=== PATIENT | female | born 1960 | race Caucasian/White ===

== ENCOUNTER 2017-06-23 18:20 | Emergency (ER) | payer OTHER | END 2017-06-23 20:20 | disposition home or self-care (01) | LOC: ER 18:20 | DX: S02.2XXA Fracture of nasal bones, initial encounter for closed fracture (principal); S00.83XA Contusion of other part of head, initial encounter; S80.01XA Contusion of right knee, initial encounter; I10 Essential (primary) hypertension; G43.909 Migraine, unspecified, not intractable, without status migrainosus; Z90.710 Acquired absence of both cervix and uterus; G30.9 Alzheimer's disease, unspecified; F02.80 Dementia in other diseases classified elsewhere, unspecified severity, without behavioral disturbance, psychotic disturbance, mood disturbance, and anxiety; W00.0XXA Fall on same level due to ice and snow, initial encounter; Y93.89 Activity, other specified; Y99.8 Other external cause status; Y92.89 Other specified places as the place of occurrence of the external cause | CPT/HCPCS: 70450; 70486; 99284-25 ==

== ENCOUNTER 2018-02-03 14:11 | Inpatient (IN) | payer OTHER ==
[~2018-02-03] VITALS: Ht 157.5 cm; Wt 93.1 kg
[~2018-02-03 14:11] MED LIST: HYDR-971 PO; fioricet; tramadol
[2018-02-03] MEDS ORDERED: IV NORMAL SALINE 1000ML BAG 1,000 ML IV ONE ×2 (15:00→16:30)
[2018-02-03 15:03] LABS: BASO % 0 % (0-3); EOS # 0.1 x10^3/uL (0.0-0.7); EOS % 1 % (0-3); HEMATOCRIT 41.6 % (36.0-47.0); HEMOGLOBIN 14.2 g/dL (12.0-15.5); LYMPH # 1.5 x10^3/uL (1.0-4.8); LYMPH % 13 % (24-48); MEAN CORPUSCULAR HEMOGLOBIN 31 pg (25-35); MEAN CORPUSCULAR HGB CONC 34 g/dL (31-37); MEAN CORPUSCULAR VOLUME 90 fL (79-100); MONO # 0.8 x10^3/uL (0.0-1.1); MONO % 7 % (0-9); NEUT # 8.8 x10^3uL (1.8-7.7); NEUT % 79 % (31-73); PLATELET COUNT 261 x10^3/uL (140-400); RED BLOOD COUNT 4.61 x10^6/uL (3.50-5.40); RED CELL DISTRIBUTION WIDTH 13.9 % (11.5-14.5); WHITE BLOOD COUNT 11.1 x10^3/uL (4.0-11.0)
--- NOTE | 2018-02-03 15:05 | PHYS DOC ---
Past Medical History Past Medical History: Dementia, Hypertension, Migraines, Other Additional Past Medical Histor: KNEE PROBLEMS,ALZHEIMER'S Past Surgical History: Hysterectomy, Other Additional Past Surgical Histo: BILAT cataract removed 11/17, Rt arm Alcohol Use: Occasionally Drug Use: None Adult General Chief Complaint Chief Complaint: DIZZY/LIGHT HEADED HPI HPI Patient is a 57 year old female with a history of Alzheimer's, hypertension, migraine headaches, who presents today complaining of dizziness worse on ambulation that begun today. She states she feels off-balance during the dizzy episodes. Patient is also complaining of nausea. Denies any vomiting. Denies any headache, denies any chest pain shortness of breath. Denies any cough, or congestion, Review of Systems Review of Systems Constitutional: Denies fever or chills [] Eyes: Denies change in visual acuity, redness, or eye pain [] HENT: Denies nasal congestion or sore throat [] Respiratory: Denies cough or shortness of breath [] Cardiovascular: No additional information not addressed in HPI [] GI: Denies abdominal pain, nausea, vomiting, bloody stools or diarrhea [] : Denies dysuria or hematuria [] Musculoskeletal: Denies back pain or joint pain [] Integument: Denies rash or skin lesions [] Neurologic: Reports dizziness. Denies headache, focal weakness or sensory changes [] All other systems were reviewed and found to be within normal limits, except as documented in this note. Current Medications Current Medications Current Medications Medications (Trade) Dose Ordered Sig/[facility] Start Time Stop Time Status Last Admin Dose Admin Acetaminophen (Tylenol) 650 mg PRN Q4HRS PRN 02/03/18 16:30 02/04/18 16:29 Meclizine HCl (Antivert) 25 mg PRN BID PRN 02/03/18 16:30 Ondansetron HCl (Zofran) 4 mg PRN Q8HRS PRN 02/03/18 16:30 02/04/18 16:29 Sodium Chloride 1,000 ml @ 125 mls/hr 1X ONCE 02/03/18 16:30 02/04/18 00:29 Allergies Allergies Allergies Coded Allergies Type Severity Reaction Last Updated Verified No Known Drug Allergies 11/20/14 No Physical Exam Physical Exam Constitutional: Well developed, well nourished, no acute distress, non-toxic appearance. [] HENT: Normocephalic, atraumatic, bilateral external ears normal, oropharynx moist, no oral exudates, nose normal. [] Eyes: PERRLA, EOMI, conjunctiva normal, no discharge. [] Neck: Normal range of motion, no tenderness, supple, no stridor. [] Cardiovascular:Heart rate regular rhythm, no murmur [] Lungs & Thorax: Bilateral breath sounds clear to auscultation [] Abdomen: Bowel sounds normal, soft, no tenderness, no masses, no pulsatile masses. [] Skin: Warm, dry, no erythema, no rash. [] Back: No tenderness, no CVA tenderness. [] Extremities: No tenderness, no cyanosis, no clubbing, ROM intact, no edema. [] Neurologic: Alert and oriented X 3, normal motor function, normal sensory function, no focal deficits noted. Cranial nerves II through XII intact Psychologic: Affect normal, judgement normal, mood normal. [] Current Patient Data Vital Signs Vital Signs Date Time Temp Pulse Resp B/P (MAP) Pulse Ox O2 Delivery O2 Flow Rate FiO2 02/03/18 14:11 97.8 55 24 156/91 (112) 96 Room Air 97.8 Lab Values Laboratory Tests Test 02/03/18 14:40 02/03/18 15:13 White Blood Count 11.1 x10^3/uL (4.0-11.0) H Red Blood Count 4.61 x10^6/uL (3.50-5.40) Hemoglobin 14.2 g/dL (12.0-15.5) Hematocrit 41.6 % (36.0-47.0) Mean Corpuscular Volume 90 fL (79-100) Mean Corpuscular Hemoglobin 31 pg (25-35) Mean Corpuscular Hemoglobin Concent 34 g/dL (31-37) Red Cell Distribution Width 13.9 % (11.5-14.5) Platelet Count 261 x10^3/uL (140-400) Neutrophils (%) (Auto) 79 % (31-73) H Lymphocytes (%) (Auto) 13 % (24-48) L Monocytes (%) (Auto) 7 % (0-9) Eosinophils (%) (Auto) 1 % (0-3) Basophils (%) (Auto) 0 % (0-3) Neutrophils # (Auto) 8.8 x10^3uL (1.8-7.7) H Lymphocytes # (Auto) 1.5 x10^3/uL (1.0-4.8) Monocytes # (Auto) 0.8 x10^3/uL (0.0-1.1) Eosinophils # (Auto) 0.1 x10^3/uL (0.0-0.7) Basophils # (Auto) 0.0 x10^3/uL (0.0-0.2) Sodium Level 136 mmol/L (136-145) Potassium Level 3.9 mmol/L (3.5-5.1) Chloride Level 104 mmol/L (98-107) Carbon Dioxide Level 23 mmol/L (21-32) Anion Gap 9 (6-14) Blood Urea Nitrogen 8 mg/dL (7-20) Creatinine 1.0 mg/dL (0.6-1.0) Estimated GFR (Cockcroft-Gault) 57.4 BUN/Creatinine Ratio 8 (6-20) Glucose Level 109 mg/dL (70-99) H Calcium Level 9.3 mg/dL (8.5-10.1) Magnesium Level 2.2 mg/dL (1.8-2.4) Total Bilirubin 0.5 mg/dL (0.2-1.0) Aspartate Amino Transferase (AST) 14 U/L (15-37) L Alanine Aminotransferase (ALT) 21 U/L (14-59) Alkaline Phosphatase 108 U/L (46-116) Creatine Kinase 61 U/L (26-192) Creatine Kinase MB (Mass) 0.9 ng/mL (0.0-3.6) Creatine Kinase MB Relative Index % (0-4) Troponin I Quantitative < 0.017 ng/mL (0.000-0.055) UP-Vkx-R-Type Natriuretic Peptide 176 pg/mL (0-124) H Total Protein 7.4 g/dL (6.4-8.2) Albumin 3.8 g/dL (3.4-5.0) Albumin/Globulin Ratio 1.1 (1.0-1.7) Thyroid Stimulating Hormone (TSH) 1.311 uIU/mL (0.358-3.74) Urine Collection Type Unknown Urine Color Yellow Urine Clarity Clear Urine pH 6.5 Urine Specific [place] 1.010 Urine Protein Negative mg/dL (NEG-TRACE) Urine Glucose (UA) Negative mg/dL (NEG) Urine Ketones (Stick) Negative mg/dL (NEG) Urine Blood Negative (NEG) Urine Nitrite Negative (NEG) Urine Bilirubin Negative (NEG) Urine Urobilinogen Dipstick 0.2 mg/dL (0.2 mg/dL) Urine Leukocyte Esterase Small (NEG) Urine RBC Occ /HPF (0-2) Urine WBC Occ /HPF (0-4) Urine Squamous Epithelial Cells Many /LPF Urine Bacteria Few /HPF (0-FEW) Urine Mucus Slight /LPF Urine Opiates Screen Neg (NEG) Urine Methadone Screen Neg (NEG) Urine Barbiturates Neg (NEG) Urine Phencyclidine Screen Neg (NEG) Urine Amphetamine/Methamphetamine Neg (NEG) Urine Benzodiazepines Screen Neg (NEG) Urine Cocaine Screen Neg (NEG) Urine Cannabinoids Screen Neg (NEG) Urine Ethyl Alcohol Neg (NEG) Laboratory Tests 02/03/18 14:40 Laboratory Tests 02/03/18 14:40 EKG EKG 14:31Interpreted by Dr. Martínez sinus rhythm, HR 50 no STEMI Radiology/Procedures Radiology/Procedures []PROCEDURE: PORTABLE CHEST 1V Portable chest, 02/03/2018: HISTORY: Dizziness, nausea, headache The heart size and pulmonary vascularity are normal. No pulmonary infiltrate is seen. There is no evidence of pleural fluid. IMPRESSION: No acute cardiopulmonary abnormality is detected. Electronically signed by: Booker Zaragoza MD (02/03/2018 3:16 PM) [facility] DICTATED and SIGNED BY: BOOKER ZARAGOZA MD DATE: 02/03/18 1516 PROCEDURE: CT HEAD WO CONTRAST EXAM: Head CT without contrast. HISTORY: Dizziness. TECHNIQUE: Computed tomographic images of the head were obtained without contrast. *One or more of the following individualized dose reduction techniques were utilized for this examination: 1. Automated exposure control. 2. Adjustment of the mA and/or kV according to patient size. 3. Use of iterative reconstruction technique. COMPARISON: 06/23/2017. FINDINGS: There is no acute or subacute extra-axial or intraparenchymal hemorrhage. There is no mass effect or midline shift. There is no hydrocephalus. There are subtle areas of hypodensity within the cerebral white matter, likely due to chronic small vessel disease. There is cerebral volume loss, greater than expected for patient age. There is a prominent sella. There is evidence of lens surgery. There is a tiny amount of fluid within the right mastoid air cells. No suspicious calvarial lesion is seen. IMPRESSION: 1. Subtle areas of hypodensity within the cerebral white matter, likely due to chronic small vessel disease. 2. Cerebral volume loss, greater than expected for patient age. 3. Suspected empty or partially empty sella. Electronically signed by: Barbara Polanco MD (02/03/2018 3:29 PM) [facility] DICTATED and SIGNED BY: BARBARA POLANCO MD DATE: 02/03/18 1528 Course & Med Decision Making Course & Med Decision Making Pertinent Labs and Imaging studies reviewed. (See chart for details) This is a 57-year-old female patient presenting to the ED today with complaints of dizziness especially when ambulating that began today. Patient's workup was negative for any acute findings. Patient has been given fluids as well as meclizine. She is still complaining of dizziness. She states she is afraid to go home she might fall. Consulted Dr. Poe who accepted patient for admission Routine consult placed for neurology Dragon Disclaimer Dragon Disclaimer This electronic medical record was generated, in whole or in part, using a voice recognition dictation system. Departure Departure Impression: Primary Impression: Dizziness Additional Impression: Nausea Disposition: ADMITTED INPATIENT Condition: STABLE Referrals: UNKNOWN PCP NAME (PCP) Problem Qualifiers DOMINGO ELLIOTT APRN Feb 03, 2018 15:05
[2018-02-03] MEDS ORDERED: MECLIZINE HCL 12.5 MG TABLET. PO ONE (15:15)
[2018-02-03] MEDS ORDERED: ONDANSETRON PF 4 MG/2 ML VIAL. IV ONE (15:15)
--- NOTE | 2018-02-03 15:19 | RAD ---
Portable chest, 02/03/2018: HISTORY: Dizziness, nausea, headache The heart size and pulmonary vascularity are normal. No pulmonary infiltrate is seen. There is no evidence of pleural fluid. IMPRESSION: No acute cardiopulmonary abnormality is detected. Electronically signed by: Booker Zaragoza MD (02/03/2018 3:16 PM) [facility]
[2018-02-03 15:24] LABS: BILIRUBIN,URINE NEGATIVE (NEG); CLARITY,URINE CLEAR; COLOR,URINE YELLOW; NITRITE,URINE NEGATIVE (NEG); PH,URINE 6.5; PROTEIN,URINE NEGATIVE (NEG-TRACE); UROBILINOGEN,URINE 0.2 mg/dL (0.2 mg/dL)
[2018-02-03 15:26] LABS: CALCIUM 9.3 mg/dL (8.5-10.1); GFR 57.4; POTASSIUM 3.9 mmol/L (3.5-5.1)
[2018-02-03 15:30] LABS: BACTERIA,URINE FEW /HPF (0-FEW); RBC,URINE OCC /HPF (0-2); SQUAMOUS EPITHELIAL CELL,UR MANY /LPF; WBC,URINE OCC /HPF (0-4)
[2018-02-03 15:33] LABS: BARBITURATES NEG (NEG); BENZODIAZEPINES NEG (NEG); CANNABINOIDS NEG (NEG); COCAINE NEG (NEG); METHADONE NEG (NEG); OPIATES NEG (NEG); PHENCYCLIDINE NEG (NEG)
--- NOTE | 2018-02-03 15:33 | RAD ---
EXAM: Head CT without contrast. HISTORY: Dizziness. TECHNIQUE: Computed tomographic images of the head were obtained without contrast. *One or more of the following individualized dose reduction techniques were utilized for this examination: 1. Automated exposure control. 2. Adjustment of the mA and/or kV according to patient size. 3. Use of iterative reconstruction technique. COMPARISON: 06/23/2017. FINDINGS: There is no acute or subacute extra-axial or intraparenchymal hemorrhage. There is no mass effect or midline shift. There is no hydrocephalus. There are subtle areas of hypodensity within the cerebral white matter, likely due to chronic small vessel disease. There is cerebral volume loss, greater than expected for patient age. There is a prominent sella. There is evidence of lens surgery. There is a tiny amount of fluid within the right mastoid air cells. No suspicious calvarial lesion is seen. IMPRESSION: 1. Subtle areas of hypodensity within the cerebral white matter, likely due to chronic small vessel disease. 2. Cerebral volume loss, greater than expected for patient age. 3. Suspected empty or partially empty sella. Electronically signed by: Barbara Francois MD (02/03/2018 3:29 PM) [facility]
[2018-02-03 15:35] LABS: AMPHETAMINE/METHAMPHETAMINE NEG (NEG)
[2018-02-03 15:37] LABS: ALBUMIN 3.8 g/dL (3.4-5.0); ALBUMIN/GLOBULIN RATIO 1.1 (1.0-1.7); CREATINE KINASE 61 U/L (26-192); MAGNESIUM 2.2 mg/dL (1.8-2.4); TOTAL BILIRUBIN 0.5 mg/dL (0.2-1.0); TOTAL PROTEIN 7.4 g/dL (6.4-8.2)
--- NOTE | 2018-02-03 15:38 | EKG ---
[facility] [address] [place] [address] Test Date: 2018-02-03 Test Time: 14:31:30 Pat Name: NY LAMAR Department: Room: Gender: F Staff Therapist: : [id number] Requested By: DOMINGO ELLIOTT Order Number: [id number] Reading MD: Mark Rock MD Measurements Intervals [place] Rate: 51 P: 39 [place]: 132 QRS: 15 QRSD: 86 T: 14 QT: 454 QTc: 420 Interpretive Statements SINUS RHYTHM NON-SPECIFIC ST/T CHANGES Electronically Signed On 02-04-2018 12:28:10 CDT by Mark Rock MD
[2018-02-03] MEDS ORDERED: ONDANSETRON PF 4 MG/2 ML VIAL. IV PRN (16:30)
[2018-02-03] MEDS ORDERED: MECLIZINE HCL 12.5 MG TABLET. PO PRN (16:30)
[2018-02-03] MEDS ORDERED: ACETAMINOPHEN 325 MG TABLET. PO PRN (16:30)
--- NOTE | 2018-02-03 18:33 | PDOC1 ---
History and Physical Date of Admission Date of Admission DATE: 02/03/18 TIME: 18:33 Identification/Chief Complaint Chief Complaint cc presents today to ER complaining of dizziness worse on ambulation , states she feels off-balance during the dizzy episodes. also complaining of nausea. Denies any vomiting. Denies any headache, denies any chest pain shortness of breath UNABLE TO Safely ambulate in ER Past Medical History Past Medical History Past Medical History Past Medical History Past Medical History: Dementia, Hypertension, Migraines, Other Additional Past Medical Histor: KNEE PROBLEMS,ALZHEIMER'S Past Surgical History: Hysterectomy, Other Additional Past Surgical Histo: BILAT cataract removed 11/17, Rt arm Alcohol Use: Occasionally Drug Use: None FAMILY HX OBESITY, HTN Pulmonary: No pertinent hx Family History Family History: High Cholestrol Family History: Parent Social History Smoke: No ALCOHOL: none Drugs: None Current Problem List Problem List Problems Medical Problems: (1) Dizziness Status: Acute (2) Nausea Status: Acute Current Medications Current Medications Current Medications Sodium Chloride 1,000 ml @ 1,000 mls/hr 1X ONCE IV Last administered on at 15:37; Start 02/03/18 at 15:00; Stop 02/03/18 at 15:59; Status DC Meclizine HCl (Antivert) 25 mg 1X ONCE PO Last administered on 02/03/18at 15:37 ; Start 02/03/18 at 15:15; Stop 02/03/18 at 15:16; Status DC Ondansetron HCl (Zofran) 4 mg 1X ONCE IV Last administered on 02/03/18at 15:37 ; Start 02/03/18 at 15:15; Stop 02/03/18 at 15:16; Status DC Ondansetron HCl (Zofran) 4 mg PRN Q8HRS PRN IV NAUSEA/VOMITING; Start 02/03/18 at 16:30; Stop 02/04/18 at 16:29 Acetaminophen (Tylenol) 650 mg PRN Q4HRS PRN PO FEVER; Start 02/03/18 at 16:30 ; Stop 02/04/18 at 16:29 Sodium Chloride 1,000 ml @ 125 mls/hr 1X ONCE IV Last administered on at 18:30; Start 02/03/18 at 16:30; Stop 8/29/18 at 00:29 Meclizine HCl (Antivert) 25 mg PRN BID PRN PO DIZZINESS; Start 02/03/18 at 16: 30 Active Scripts Active Allergies Allergies: Coded Allergies: No Known Drug Allergies (Unverified , 11/20/14) ROS Review of System Review of Systems Review of Systems Constitutional: Denies fever or chills [] Eyes: Denies change in visual acuity, redness, or eye pain [] HENT: Denies nasal congestion or sore throat [] Respiratory: Denies cough or shortness of breath [] Cardiovascular: No additional information not addressed in HPI [] GI: Denies abdominal pain, nausea, vomiting, bloody stools or diarrhea [] : Denies dysuria or hematuria [] Musculoskeletal: Denies back pain or joint pain [] Integument: Denies rash or skin lesions [] Neurologic: Reports dizziness. Denies headache, focal weakness or sensory changes 14 PT ROS OTHERWISE NEG [] General: YES: Fatigue PSYCHOLOGICAL ROS: YES: Anxiety Gastrointestinal: Yes Nausea Neurological: Yes Gait Disturbance Physical Exam Physical Exam Physical Exam Physical Exam Constitutional: Well developed, well nourished, no acute distress, non-toxic appearance. [] HENT: Normocephalic, atraumatic, bilateral external ears normal, oropharynx moist, no oral exudates, nose normal. [] Eyes: PERRLA, EOMI, conjunctiva normal, no discharge. NO NYSTAGMUS [] Neck: Normal range of motion, no tenderness, supple, no stridor. [] Cardiovascular:Heart rate regular rhythm, no murmur [] Lungs & Thorax: Bilateral breath sounds clear to auscultation [] Abdomen: Bowel sounds normal, soft, no tenderness, no masses, no pulsatile masses. [] Skin: Warm, dry, no erythema, no rash. [] Back: No tenderness, no CVA tenderness. [] Extremities: No tenderness, no cyanosis, no clubbing, ROM intact, no edema. [] Neurologic: Alert and oriented X 3, ROMBERG POS normal sensory function, no focal deficits noted. Cranial nerves II through XII intact Psychologic: mood normal. [] General: Cooperative Lungs: Normal air movement Breasts: Not examined PELVIC: Examination not indicated Extremities: No clubbing, No cyanosis Skin: No significant lesion Neuro: Normal speech, Cranial nerves 3-12 NL Vitals Vitals Vital Signs Date Time Temp Pulse Resp B/P (MAP) Pulse Ox O2 Delivery O2 Flow Rate FiO2 02/03/18 17:00 48 14 96 02/03/18 14:11 97.8 156/91 (112) Room Air 97.8 Labs Labs Laboratory Tests Test 02/03/18 14:40 02/03/18 15:13 White Blood Count 11.1 x10^3/uL (4.0-11.0) Red Blood Count 4.61 x10^6/uL (3.50-5.40) Hemoglobin 14.2 g/dL (12.0-15.5) Hematocrit 41.6 % (36.0-47.0) Mean Corpuscular Volume 90 fL (79-100) Mean Corpuscular Hemoglobin 31 pg (25-35) Mean Corpuscular Hemoglobin Concent 34 g/dL (31-37) Red Cell Distribution Width 13.9 % (11.5-14.5) Platelet Count 261 x10^3/uL (140-400) Neutrophils (%) (Auto) 79 % (31-73) Lymphocytes (%) (Auto) 13 % (24-48) Monocytes (%) (Auto) 7 % (0-9) Eosinophils (%) (Auto) 1 % (0-3) Basophils (%) (Auto) 0 % (0-3) Neutrophils # (Auto) 8.8 x10^3uL (1.8-7.7) Lymphocytes # (Auto) 1.5 x10^3/uL (1.0-4.8) Monocytes # (Auto) 0.8 x10^3/uL (0.0-1.1) Eosinophils # (Auto) 0.1 x10^3/uL (0.0-0.7) Basophils # (Auto) 0.0 x10^3/uL (0.0-0.2) Sodium Level 136 mmol/L (136-145) Potassium Level 3.9 mmol/L (3.5-5.1) Chloride Level 104 mmol/L (98-107) Carbon Dioxide Level 23 mmol/L (21-32) Anion Gap 9 (6-14) Blood Urea Nitrogen 8 mg/dL (7-20) Creatinine 1.0 mg/dL (0.6-1.0) Estimated GFR (Cockcroft-Gault) 57.4 BUN/Creatinine Ratio 8 (6-20) Glucose Level 109 mg/dL (70-99) Calcium Level 9.3 mg/dL (8.5-10.1) Magnesium Level 2.2 mg/dL (1.8-2.4) Total Bilirubin 0.5 mg/dL (0.2-1.0) Aspartate Amino Transf (AST/SGOT) 14 U/L (15-37) Alanine Aminotransferase (ALT/SGPT) 21 U/L (14-59) Alkaline Phosphatase 108 U/L (46-116) Creatine Kinase 61 U/L (26-192) Creatine Kinase MB (Mass) 0.9 ng/mL (0.0-3.6) Creatine Kinase MB Relative Index % (0-4) Troponin I Quantitative < 0.017 ng/mL (0.000-0.055) CF-Vck-F-Type Natriuretic Peptide 176 pg/mL (0-124) Total Protein 7.4 g/dL (6.4-8.2) Albumin 3.8 g/dL (3.4-5.0) Albumin/Globulin Ratio 1.1 (1.0-1.7) Thyroid Stimulating Hormone (TSH) 1.311 uIU/mL (0.358-3.74) Urine Collection Type Unknown Urine Color Yellow Urine Clarity Clear Urine pH 6.5 Urine Specific [place] 1.010 Urine Protein Negative mg/dL (NEG-TRACE) Urine Glucose (UA) Negative mg/dL (NEG) Urine Ketones (Stick) Negative mg/dL (NEG) Urine Blood Negative (NEG) Urine Nitrite Negative (NEG) Urine Bilirubin Negative (NEG) Urine Urobilinogen Dipstick 0.2 mg/dL (0.2 mg/dL) Urine Leukocyte Esterase Small (NEG) Urine RBC Occ /HPF (0-2) Urine WBC Occ /HPF (0-4) Urine Squamous Epithelial Cells Many /LPF Urine Bacteria Few /HPF (0-FEW) Urine Mucus Slight /LPF Urine Opiates Screen Neg (NEG) Urine Methadone Screen Neg (NEG) Urine Barbiturates Neg (NEG) Urine Phencyclidine Screen Neg (NEG) Urine Amphetamine/Methamphetamine Neg (NEG) Urine Benzodiazepines Screen Neg (NEG) Urine Cocaine Screen Neg (NEG) Urine Cannabinoids Screen Neg (NEG) Urine Ethyl Alcohol Neg (NEG) Laboratory Tests Test 02/03/18 14:40 02/03/18 15:13 White Blood Count 11.1 x10^3/uL (4.0-11.0) Red Blood Count 4.61 x10^6/uL (3.50-5.40) Hemoglobin 14.2 g/dL (12.0-15.5) Hematocrit 41.6 % (36.0-47.0) Mean Corpuscular Volume 90 fL (79-100) Mean Corpuscular Hemoglobin 31 pg (25-35) Mean Corpuscular Hemoglobin Concent 34 g/dL (31-37) Red Cell Distribution Width 13.9 % (11.5-14.5) Platelet Count 261 x10^3/uL (140-400) Neutrophils (%) (Auto) 79 % (31-73) Lymphocytes (%) (Auto) 13 % (24-48) Monocytes (%) (Auto) 7 % (0-9) Eosinophils (%) (Auto) 1 % (0-3) Basophils (%) (Auto) 0 % (0-3) Neutrophils # (Auto) 8.8 x10^3uL (1.8-7.7) Lymphocytes # (Auto) 1.5 x10^3/uL (1.0-4.8) Monocytes # (Auto) 0.8 x10^3/uL (0.0-1.1) Eosinophils # (Auto) 0.1 x10^3/uL (0.0-0.7) Basophils # (Auto) 0.0 x10^3/uL (0.0-0.2) Sodium Level 136 mmol/L (136-145) Potassium Level 3.9 mmol/L (3.5-5.1) Chloride Level 104 mmol/L (98-107) Carbon Dioxide Level 23 mmol/L (21-32) Anion Gap 9 (6-14) Blood Urea Nitrogen 8 mg/dL (7-20) Creatinine 1.0 mg/dL (0.6-1.0) Estimated GFR (Cockcroft-Gault) 57.4 BUN/Creatinine Ratio 8 (6-20) Glucose Level 109 mg/dL (70-99) Calcium Level 9.3 mg/dL (8.5-10.1) Magnesium Level 2.2 mg/dL (1.8-2.4) Total Bilirubin 0.5 mg/dL (0.2-1.0) Aspartate Amino Transf (AST/SGOT) 14 U/L (15-37) Alanine Aminotransferase (ALT/SGPT) 21 U/L (14-59) Alkaline Phosphatase 108 U/L (46-116) Creatine Kinase 61 U/L (26-192) Creatine Kinase MB (Mass) 0.9 ng/mL (0.0-3.6) Creatine Kinase MB Relative Index % (0-4) Troponin I Quantitative < 0.017 ng/mL (0.000-0.055) WW-Qtn-Y-Type Natriuretic Peptide 176 pg/mL (0-124) Total Protein 7.4 g/dL (6.4-8.2) Albumin 3.8 g/dL (3.4-5.0) Albumin/Globulin Ratio 1.1 (1.0-1.7) Thyroid Stimulating Hormone (TSH) 1.311 uIU/mL (0.358-3.74) Urine Collection Type Unknown Urine Color Yellow Urine Clarity Clear Urine pH 6.5 Urine Specific [place] 1.010 Urine Protein Negative mg/dL (NEG-TRACE) Urine Glucose (UA) Negative mg/dL (NEG) Urine Ketones (Stick) Negative mg/dL (NEG) Urine Blood Negative (NEG) Urine Nitrite Negative (NEG) Urine Bilirubin Negative (NEG) Urine Urobilinogen Dipstick 0.2 mg/dL (0.2 mg/dL) Urine Leukocyte Esterase Small (NEG) Urine RBC Occ /HPF (0-2) Urine WBC Occ /HPF (0-4) Urine Squamous Epithelial Cells Many /LPF Urine Bacteria Few /HPF (0-FEW) Urine Mucus Slight /LPF Urine Opiates Screen Neg (NEG) Urine Methadone Screen Neg (NEG) Urine Barbiturates Neg (NEG) Urine Phencyclidine Screen Neg (NEG) Urine Amphetamine/Methamphetamine Neg (NEG) Urine Benzodiazepines Screen Neg (NEG) Urine Cocaine Screen Neg (NEG) Urine Cannabinoids Screen Neg (NEG) Urine Ethyl Alcohol Neg (NEG) Images Images *One or more of the following individualized dose reduction techniques were utilized for this examination: 1. Automated exposure control. 2. Adjustment of the mA and/or kV according to patient size. 3. Use of iterative reconstruction technique. COMPARISON: 06/23/2017. FINDINGS: There is no acute or subacute extra-axial or intraparenchymal hemorrhage. There is no mass effect or midline shift. There is no hydrocephalus. There are subtle areas of hypodensity within the cerebral white matter, likely due to chronic small vessel disease. There is cerebral volume loss, greater than expected for patient age. There is a prominent sella. There is evidence of lens surgery. There is a tiny amount of fluid within the right mastoid air cells. No suspicious calvarial lesion is seen. IMPRESSION: 1. Subtle areas of hypodensity within the cerebral white matter, likely due to chronic small vessel disease. 2. Cerebral volume loss, greater than expected for patient age. 3. Suspected empty or partially empty sella. Electronically signed by: Barbara Francois MD (02/03/2018 3:29 PM) [place] [id number] DICTATED and SIGNED BY: BARBARA FRANCOIS MD VTE Prophylaxis Ordered VTE Prophylaxis Devices: Yes VTE Pharmacological Prophylaxi: Yes Assessment/Plan Assessment/Plan IMPRESSION 1. Concern for TIA or cva 2. hypodensity within the cerebral white matter, likely due to chronic small vessel disease. 3. Cerebral volume loss, greater than expected for patient age. 4. Suspected empty or partially empty sella. 5. hypertension plan 1. tele 2. neurology consult 3. bed rest 4,. fall risk precautions 5. carotid dopplers 6. consider mri head 7. lovenox dvt prophylaxis 8. neurochecks q 4 hrs ALBERTO KINSEY MD Feb 03, 2018 18:33
[2018-02-03] MEDS ORDERED: ONDA4TAB10 SL (18:41)
[2018-02-03] MEDS ORDERED: ATEN50TA PO (18:41)
[2018-02-03] MEDS ORDERED: SERT50TA PO (18:41)
[2018-02-03] MEDS ORDERED: DONE10TA61 PO (18:41)
[2018-02-03 19:00] VITALS: BP 128/77
[2018-02-03] MEDS ORDERED: ONDANSETRON ODT 4 MG TAB.RAPDIS. PO PRN (21:00)
[2018-02-03] MEDS: ENOXAPARIN 40 MG/0.4 ML SYRINGE. SQ SCH (21:11)
[2018-02-03 22:50] VITALS: BP 119/65
[2018-02-04 02:51] VITALS: BP 126/66
[2018-02-04 07:00] VITALS: BP 138/81
--- NOTE | 2018-02-04 07:55 | RAD ---
Carotid ultrasound, 02/04/2018: HISTORY: Dizziness Duplex evaluation of the carotid arteries and neck was performed including grayscale, color-flow and spectral Doppler analysis. There is mild intimal thickening in the common carotid arteries and at the carotid bifurcations. No significant focal plaque formation is identified. The peak systolic velocity in the right internal carotid artery is 53 cm/s with an end-diastolic velocity of 20 cm/s and an internal carotid to common carotid artery ratio of 0.9. On the left the peak systolic velocity in the internal carotid artery is 86 cm/s with an end-diastolic velocity of 39 cm/s and an internal carotid to common carotid artery ratio of 0.9. These Doppler findings do not suggest significant stenosis. Antegrade flow is present in both vertebral arteries in the neck. IMPRESSION: No duplex evidence of significant carotid stenosis of the neck. Note: Stenosis calculations for CT, MRA and conventional angiography are based upon determination of the distal ICA diameter in accordance with the NASCET methodology. Stenosis calculations for Doppler studies are derived from validated velocity criteria which are known to correlate with NASCET methodology of determining stenosis. Electronically signed by: Booker Zaragoza MD (02/04/2018 7:52 AM) [facility]
[2018-02-04] MEDS: DONEPEZIL HCL 10 MG TABLET. PO SCH (08:17)
[2018-02-04] MEDS: ASPIRIN ENTERIC COATED 325 MG TABLET.DR. PO SCH (08:17)
[2018-02-04] MEDS: SERTRALINE 50 MG TABLET. PO SCH (08:18)
[2018-02-04] MEDS: ATENOLOL 50 MG TABLET. PO SCH (08:18)
[2018-02-04 08:58] LABS: BASO # 0.1 x10^3/uL (0.0-0.2); BASO % 1 % (0-3); EOS # 0.2 x10^3/uL (0.0-0.7); EOS % 2 % (0-3); HEMATOCRIT 41.1 % (36.0-47.0); HEMOGLOBIN 14.3 g/dL (12.0-15.5); LYMPH # 1.6 x10^3/uL (1.0-4.8); LYMPH % 21 % (24-48); MEAN CORPUSCULAR HEMOGLOBIN 32 pg (25-35); MEAN CORPUSCULAR HGB CONC 35 g/dL (31-37); MEAN CORPUSCULAR VOLUME 91 fL (79-100); MONO # 0.4 x10^3/uL (0.0-1.1); MONO % 5 % (0-9); NEUT # 5.3 x10^3uL (1.8-7.7); NEUT % 71 % (31-73); PLATELET COUNT 228 x10^3/uL (140-400); RED BLOOD COUNT 4.51 x10^6/uL (3.50-5.40); RED CELL DISTRIBUTION WIDTH 13.7 % (11.5-14.5); WHITE BLOOD COUNT 7.5 x10^3/uL (4.0-11.0)
[2018-02-04 09:16] LABS: CALCIUM 8.3 mg/dL (8.5-10.1); GFR 57.4; POTASSIUM 3.7 mmol/L (3.5-5.1)
--- NOTE | 2018-02-04 12:14 | PDOC ---
PROGRESS NOTES Chief Complaint Chief Complaint Pt reports Alzheimer's diagnosis at Concern for TIA or CVA Hypodensity within the cerebral white matter, likely due to chronic small vessel disease. Cerebral volume loss, greater than expected for patient age. Suspected empty or partially empty sella. Hypertension History of Present Illness History of Present Illness Pt seen and examined Dw RN Pt slow to answer questions, does not know year Reports difficulty walking Complains of dizziness Reports she sees neuro at and has been told she has Alzheimer's Vitals Vitals Vital Signs Date Time Temp Pulse Resp B/P (MAP) Pulse Ox O2 Delivery O2 Flow Rate FiO2 02/04/18 08:18 52 138/81 02/04/18 08:00 Room Air 02/04/18 07:00 97.5 18 99 97.5 Physical Exam General: Alert, Cooperative, No acute distress, Other (Not oriented to time) Heart: Regular rate, Normal S1, Normal S2, No murmurs Lungs: Clear Abdomen: Soft, No tenderness Extremities: No clubbing, No cyanosis, No edema Skin: No rashes, No significant lesion Labs LABS Laboratory Tests Test 02/03/18 14:40 02/03/18 15:13 02/04/18 08:09 White Blood Count 11.1 x10^3/uL (4.0-11.0) 7.5 x10^3/uL (4.0-11.0) Red Blood Count 4.61 x10^6/uL (3.50-5.40) 4.51 x10^6/uL (3.50-5.40) Hemoglobin 14.2 g/dL (12.0-15.5) 14.3 g/dL (12.0-15.5) Hematocrit 41.6 % (36.0-47.0) 41.1 % (36.0-47.0) Mean Corpuscular Volume 90 fL (79-100) 91 fL (79-100) Mean Corpuscular Hemoglobin 31 pg (25-35) 32 pg (25-35) Mean Corpuscular Hemoglobin Concent 34 g/dL (31-37) 35 g/dL (31-37) Red Cell Distribution Width 13.9 % (11.5-14.5) 13.7 % (11.5-14.5) Platelet Count 261 x10^3/uL (140-400) 228 x10^3/uL (140-400) Neutrophils (%) (Auto) 79 % (31-73) 71 % (31-73) Lymphocytes (%) (Auto) 13 % (24-48) 21 % (24-48) Monocytes (%) (Auto) 7 % (0-9) 5 % (0-9) Eosinophils (%) (Auto) 1 % (0-3) 2 % (0-3) Basophils (%) (Auto) 0 % (0-3) 1 % (0-3) Neutrophils # (Auto) 8.8 x10^3uL (1.8-7.7) 5.3 x10^3uL (1.8-7.7) Lymphocytes # (Auto) 1.5 x10^3/uL (1.0-4.8) 1.6 x10^3/uL (1.0-4.8) Monocytes # (Auto) 0.8 x10^3/uL (0.0-1.1) 0.4 x10^3/uL (0.0-1.1) Eosinophils # (Auto) 0.1 x10^3/uL (0.0-0.7) 0.2 x10^3/uL (0.0-0.7) Basophils # (Auto) 0.0 x10^3/uL (0.0-0.2) 0.1 x10^3/uL (0.0-0.2) Sodium Level 136 mmol/L (136-145) 141 mmol/L (136-145) Potassium Level 3.9 mmol/L (3.5-5.1) 3.7 mmol/L (3.5-5.1) Chloride Level 104 mmol/L (98-107) 106 mmol/L (98-107) Carbon Dioxide Level 23 mmol/L (21-32) 25 mmol/L (21-32) Anion Gap 9 (6-14) 10 (6-14) Blood Urea Nitrogen 8 mg/dL (7-20) 8 mg/dL (7-20) Creatinine 1.0 mg/dL (0.6-1.0) 1.0 mg/dL (0.6-1.0) Estimated GFR (Cockcroft-Gault) 57.4 57.4 BUN/Creatinine Ratio 8 (6-20) Glucose Level 109 mg/dL (70-99) 117 mg/dL (70-99) Calcium Level 9.3 mg/dL (8.5-10.1) 8.3 mg/dL (8.5-10.1) Magnesium Level 2.2 mg/dL (1.8-2.4) Total Bilirubin 0.5 mg/dL (0.2-1.0) Aspartate Amino Transf (AST/SGOT) 14 U/L (15-37) Alanine Aminotransferase (ALT/SGPT) 21 U/L (14-59) Alkaline Phosphatase 108 U/L (46-116) Creatine Kinase 61 U/L (26-192) Creatine Kinase MB (Mass) 0.9 ng/mL (0.0-3.6) Creatine Kinase MB Relative Index % (0-4) Troponin I Quantitative < 0.017 ng/mL (0.000-0.055) AR-[id number]-Type Natriuretic Peptide 176 pg/mL (0-124) Total Protein 7.4 g/dL (6.4-8.2) Albumin 3.8 g/dL (3.4-5.0) Albumin/Globulin Ratio 1.1 (1.0-1.7) Thyroid Stimulating Hormone (TSH) 1.311 uIU/mL (0.358-3.74) Urine Collection Type Unknown Urine Color Yellow Urine Clarity Clear Urine pH 6.5 Urine Specific [place] 1.010 Urine Protein Negative mg/dL (NEG-TRACE) Urine Glucose (UA) Negative mg/dL (NEG) Urine Ketones (Stick) Negative mg/dL (NEG) Urine Blood Negative (NEG) Urine Nitrite Negative (NEG) Urine Bilirubin Negative (NEG) Urine Urobilinogen Dipstick 0.2 mg/dL (0.2 mg/dL) Urine Leukocyte Esterase Small (NEG) Urine RBC Occ /HPF (0-2) Urine WBC Occ /HPF (0-4) Urine Squamous Epithelial Cells Many /LPF Urine Bacteria Few /HPF (0-FEW) Urine Mucus Slight /LPF Urine Opiates Screen Neg (NEG) Urine Methadone Screen Neg (NEG) Urine Barbiturates Neg (NEG) Urine Phencyclidine Screen Neg (NEG) Urine Amphetamine/Methamphetamine Neg (NEG) Urine Benzodiazepines Screen Neg (NEG) Urine Cocaine Screen Neg (NEG) Urine Cannabinoids Screen Neg (NEG) Urine Ethyl Alcohol Neg (NEG) Triglycerides Level 243 mg/dL (0-150) Cholesterol Level 272 mg/dL (0-200) LDL Cholesterol, Calculated 189 mg/dL (0-100) VLDL Cholesterol, Calculated 49 mg/dL (0-40) Non-HDL Cholesterol Calculated 238 mg/dL (0-129) HDL Cholesterol 34 mg/dL (40-60) Cholesterol/HDL Ratio 8.0 Vitamin B12 Level 400 pg/mL (247-911) Review of Systems Review of Systems CO dizziness CO memory difficulty Assessment and Plan Assessmemt and Plan Problems Medical Problems: (1) Dizziness Status: Acute (2) Nausea Status: Acute Pt reports Alzheimer's diagnosis at Concern for TIA or CVA Hypodensity within the cerebral white matter, likely due to chronic small vessel disease. Cerebral volume loss, greater than expected for patient age. Suspected empty or partially empty sella. Hypertension Plan: Awaiting EEG and MRI, per neuro PT/OT Rehab eval Possible DC today Appreciate neuro input Comment Review of Relevant I have reviewed the following items elijah (where applicable) has been applied. Labs Laboratory Tests Test 02/03/18 14:40 02/03/18 15:13 02/04/18 08:09 White Blood Count 11.1 x10^3/uL (4.0-11.0) 7.5 x10^3/uL (4.0-11.0) Red Blood Count 4.61 x10^6/uL (3.50-5.40) 4.51 x10^6/uL (3.50-5.40) Hemoglobin 14.2 g/dL (12.0-15.5) 14.3 g/dL (12.0-15.5) Hematocrit 41.6 % (36.0-47.0) 41.1 % (36.0-47.0) Mean Corpuscular Volume 90 fL (79-100) 91 fL (79-100) Mean Corpuscular Hemoglobin 31 pg (25-35) 32 pg (25-35) Mean Corpuscular Hemoglobin Concent 34 g/dL (31-37) 35 g/dL (31-37) Red Cell Distribution Width 13.9 % (11.5-14.5) 13.7 % (11.5-14.5) Platelet Count 261 x10^3/uL (140-400) 228 x10^3/uL (140-400) Neutrophils (%) (Auto) 79 % (31-73) 71 % (31-73) Lymphocytes (%) (Auto) 13 % (24-48) 21 % (24-48) Monocytes (%) (Auto) 7 % (0-9) 5 % (0-9) Eosinophils (%) (Auto) 1 % (0-3) 2 % (0-3) Basophils (%) (Auto) 0 % (0-3) 1 % (0-3) Neutrophils # (Auto) 8.8 x10^3uL (1.8-7.7) 5.3 x10^3uL (1.8-7.7) Lymphocytes # (Auto) 1.5 x10^3/uL (1.0-4.8) 1.6 x10^3/uL (1.0-4.8) Monocytes # (Auto) 0.8 x10^3/uL (0.0-1.1) 0.4 x10^3/uL (0.0-1.1) Eosinophils # (Auto) 0.1 x10^3/uL (0.0-0.7) 0.2 x10^3/uL (0.0-0.7) Basophils # (Auto) 0.0 x10^3/uL (0.0-0.2) 0.1 x10^3/uL (0.0-0.2) Sodium Level 136 mmol/L (136-145) 141 mmol/L (136-145) Potassium Level 3.9 mmol/L (3.5-5.1) 3.7 mmol/L (3.5-5.1) Chloride Level 104 mmol/L (98-107) 106 mmol/L (98-107) Carbon Dioxide Level 23 mmol/L (21-32) 25 mmol/L (21-32) Anion Gap 9 (6-14) 10 (6-14) Blood Urea Nitrogen 8 mg/dL (7-20) 8 mg/dL (7-20) Creatinine 1.0 mg/dL (0.6-1.0) 1.0 mg/dL (0.6-1.0) Estimated GFR (Cockcroft-Gault) 57.4 57.4 BUN/Creatinine Ratio 8 (6-20) Glucose Level 109 mg/dL (70-99) 117 mg/dL (70-99) Calcium Level 9.3 mg/dL (8.5-10.1) 8.3 mg/dL (8.5-10.1) Magnesium Level 2.2 mg/dL (1.8-2.4) Total Bilirubin 0.5 mg/dL (0.2-1.0) Aspartate Amino Transf (AST/SGOT) 14 U/L (15-37) Alanine Aminotransferase (ALT/SGPT) 21 U/L (14-59) Alkaline Phosphatase 108 U/L (46-116) Creatine Kinase 61 U/L (26-192) Creatine Kinase MB (Mass) 0.9 ng/mL (0.0-3.6) Creatine Kinase MB Relative Index % (0-4) Troponin I Quantitative < 0.017 ng/mL (0.000-0.055) WE-[id number]-[id number]-Type Natriuretic Peptide 176 pg/mL (0-124) Total Protein 7.4 g/dL (6.4-8.2) Albumin 3.8 g/dL (3.4-5.0) Albumin/Globulin Ratio 1.1 (1.0-1.7) Thyroid Stimulating Hormone (TSH) 1.311 uIU/mL (0.358-3.74) Urine Collection Type Unknown Urine Color Yellow Urine Clarity Clear Urine pH 6.5 Urine Specific [place] 1.010 Urine Protein Negative mg/dL (NEG-TRACE) Urine Glucose (UA) Negative mg/dL (NEG) Urine Ketones (Stick) Negative mg/dL (NEG) Urine Blood Negative (NEG) Urine Nitrite Negative (NEG) Urine Bilirubin Negative (NEG) Urine Urobilinogen Dipstick 0.2 mg/dL (0.2 mg/dL) Urine Leukocyte Esterase Small (NEG) Urine RBC Occ /HPF (0-2) Urine WBC Occ /HPF (0-4) Urine Squamous Epithelial Cells Many /LPF Urine Bacteria Few /HPF (0-FEW) Urine Mucus Slight /LPF Urine Opiates Screen Neg (NEG) Urine Methadone Screen Neg (NEG) Urine Barbiturates Neg (NEG) Urine Phencyclidine Screen Neg (NEG) Urine Amphetamine/Methamphetamine Neg (NEG) Urine Benzodiazepines Screen Neg (NEG) Urine Cocaine Screen Neg (NEG) Urine Cannabinoids Screen Neg (NEG) Urine Ethyl Alcohol Neg (NEG) Triglycerides Level 243 mg/dL (0-150) Cholesterol Level 272 mg/dL (0-200) LDL Cholesterol, Calculated 189 mg/dL (0-100) VLDL Cholesterol, Calculated 49 mg/dL (0-40) Non-HDL Cholesterol Calculated 238 mg/dL (0-129) HDL Cholesterol 34 mg/dL (40-60) Cholesterol/HDL Ratio 8.0 Vitamin B12 Level 400 pg/mL (247-911) Laboratory Tests Test 02/03/18 14:40 02/03/18 15:13 02/04/18 08:09 White Blood Count 11.1 x10^3/uL (4.0-11.0) 7.5 x10^3/uL (4.0-11.0) Red Blood Count 4.61 x10^6/uL (3.50-5.40) 4.51 x10^6/uL (3.50-5.40) Hemoglobin 14.2 g/dL (12.0-15.5) 14.3 g/dL (12.0-15.5) Hematocrit 41.6 % (36.0-47.0) 41.1 % (36.0-47.0) Mean Corpuscular Volume 90 fL (79-100) 91 fL (79-100) Mean Corpuscular Hemoglobin 31 pg (25-35) 32 pg (25-35) Mean Corpuscular Hemoglobin Concent 34 g/dL (31-37) 35 g/dL (31-37) Red Cell Distribution Width 13.9 % (11.5-14.5) 13.7 % (11.5-14.5) Platelet Count 261 x10^3/uL (140-400) 228 x10^3/uL (140-400) Neutrophils (%) (Auto) 79 % (31-73) 71 % (31-73) Lymphocytes (%) (Auto) 13 % (24-48) 21 % (24-48) Monocytes (%) (Auto) 7 % (0-9) 5 % (0-9) Eosinophils (%) (Auto) 1 % (0-3) 2 % (0-3) Basophils (%) (Auto) 0 % (0-3) 1 % (0-3) Neutrophils # (Auto) 8.8 x10^3uL (1.8-7.7) 5.3 x10^3uL (1.8-7.7) Lymphocytes # (Auto) 1.5 x10^3/uL (1.0-4.8) 1.6 x10^3/uL (1.0-4.8) Monocytes # (Auto) 0.8 x10^3/uL (0.0-1.1) 0.4 x10^3/uL (0.0-1.1) Eosinophils # (Auto) 0.1 x10^3/uL (0.0-0.7) 0.2 x10^3/uL (0.0-0.7) Basophils # (Auto) 0.0 x10^3/uL (0.0-0.2) 0.1 x10^3/uL (0.0-0.2) Sodium Level 136 mmol/L (136-145) 141 mmol/L (136-145) Potassium Level 3.9 mmol/L (3.5-5.1) 3.7 mmol/L (3.5-5.1) Chloride Level 104 mmol/L (98-107) 106 mmol/L (98-107) Carbon Dioxide Level 23 mmol/L (21-32) 25 mmol/L (21-32) Anion Gap 9 (6-14) 10 (6-14) Blood Urea Nitrogen 8 mg/dL (7-20) 8 mg/dL (7-20) Creatinine 1.0 mg/dL (0.6-1.0) 1.0 mg/dL (0.6-1.0) Estimated GFR (Cockcroft-Gault) 57.4 57.4 BUN/Creatinine Ratio 8 (6-20) Glucose Level 109 mg/dL (70-99) 117 mg/dL (70-99) Calcium Level 9.3 mg/dL (8.5-10.1) 8.3 mg/dL (8.5-10.1) Magnesium Level 2.2 mg/dL (1.8-2.4) Total Bilirubin 0.5 mg/dL (0.2-1.0) Aspartate Amino Transf (AST/SGOT) 14 U/L (15-37) Alanine Aminotransferase (ALT/SGPT) 21 U/L (14-59) Alkaline Phosphatase 108 U/L (46-116) Creatine Kinase 61 U/L (26-192) Creatine Kinase MB (Mass) 0.9 ng/mL (0.0-3.6) Creatine Kinase MB Relative Index % (0-4) Troponin I Quantitative < 0.017 ng/mL (0.000-0.055) EA-Jim-[id number]-Type Natriuretic Peptide 176 pg/mL (0-124) Total Protein 7.4 g/dL (6.4-8.2) Albumin 3.8 g/dL (3.4-5.0) Albumin/Globulin Ratio 1.1 (1.0-1.7) Thyroid Stimulating Hormone (TSH) 1.311 uIU/mL (0.358-3.74) Urine Collection Type Unknown Urine Color Yellow Urine Clarity Clear Urine pH 6.5 Urine Specific [place] 1.010 Urine Protein Negative mg/dL (NEG-TRACE) Urine Glucose (UA) Negative mg/dL (NEG) Urine Ketones (Stick) Negative mg/dL (NEG) Urine Blood Negative (NEG) Urine Nitrite Negative (NEG) Urine Bilirubin Negative (NEG) Urine Urobilinogen Dipstick 0.2 mg/dL (0.2 mg/dL) Urine Leukocyte Esterase Small (NEG) Urine RBC Occ /HPF (0-2) Urine WBC Occ /HPF (0-4) Urine Squamous Epithelial Cells Many /LPF Urine Bacteria Few /HPF (0-FEW) Urine Mucus Slight /LPF Urine Opiates Screen Neg (NEG) Urine Methadone Screen Neg (NEG) Urine Barbiturates Neg (NEG) Urine Phencyclidine Screen Neg (NEG) Urine Amphetamine/Methamphetamine Neg (NEG) Urine Benzodiazepines Screen Neg (NEG) Urine Cocaine Screen Neg (NEG) Urine Cannabinoids Screen Neg (NEG) Urine Ethyl Alcohol Neg (NEG) Triglycerides Level 243 mg/dL (0-150) Cholesterol Level 272 mg/dL (0-200) LDL Cholesterol, Calculated 189 mg/dL (0-100) VLDL Cholesterol, Calculated 49 mg/dL (0-40) Non-HDL Cholesterol Calculated 238 mg/dL (0-129) HDL Cholesterol 34 mg/dL (40-60) Cholesterol/HDL Ratio 8.0 Vitamin B12 Level 400 pg/mL (247-911) Medications Current Medications Sodium Chloride 1,000 ml @ 1,000 mls/hr 1X ONCE IV Last administered on at 15:37; Start 02/03/18 at 15:00; Stop 02/03/18 at 15:59; Status DC Meclizine HCl (Antivert) 25 mg 1X ONCE PO Last administered on 02/03/18at 15:37 ; Start 02/03/18 at 15:15; Stop 02/03/18 at 15:16; Status DC Ondansetron HCl (Zofran) 4 mg 1X ONCE IV Last administered on 02/03/18at 15:37 ; Start 02/03/18 at 15:15; Stop 02/03/18 at 15:16; Status DC Ondansetron HCl (Zofran) 4 mg PRN Q8HRS PRN IV NAUSEA/VOMITING; Start 02/03/18 at 16:30; Stop 02/04/18 at 16:29 Acetaminophen (Tylenol) 650 mg PRN Q4HRS PRN PO FEVER; Start 02/03/18 at 16:30 ; Stop 02/04/18 at 16:29 Sodium Chloride 1,000 ml @ 125 mls/hr 1X ONCE IV Last administered on at 18:30; Start 02/03/18 at 16:30; Stop 02/04/18 at 00:29; Status DC Meclizine HCl (Antivert) 25 mg PRN BID PRN PO DIZZINESS; Start 02/03/18 at 16: 30 Atenolol (Tenormin) 50 mg DAILY PO Last administered on 02/04/18at 08:18; Start 02/04/18 at 09:00 Ondansetron HCl (Zofran Odt) 4 mg PRN TID PRN PO NAUSEA; Start 02/03/18 at 21: 00 Sertraline HCl (Zoloft) 100 mg DAILY PO Last administered on 02/04/18at 08:18; Start 02/04/18 at 09:00 Donepezil HCl (Aricept) 10 mg DAILY PO Last administered on 02/04/18at 08:17; Start 02/04/18 at 09:00 Enoxaparin Sodium (Lovenox 40mg Syringe) 40 mg Q24H SQ Last administered on at 21:11; Start 02/03/18 at 21:00 Aspirin (Ecotrin) 325 mg DAILYWBKFT PO Last administered on 02/04/18at 08:17; Start 02/04/18 at 08:00 Atorvastatin Calcium (Lipitor) 20 mg QHS PO ; Start 02/04/18 at 21:00 Active Scripts Active Reported Zoloft (Sertraline Hcl) 50 Mg Tablet 2 Tab PO DAILY Zofran Odt (Ondansetron) 4 Mg Tab.rapdis 1 Tab SL PRN TID PRN Atenolol 50 Mg Tablet 1 Tab PO DAILY Aricept (Donepezil Hcl) 10 Mg Tablet 1 Tab PO DAILY Vitals/I & O Vital Sign - Last 24 Hours 02/03/18 02/03/18 02/03/18 02/03/18 14:11 15:00 15:30 16:00 Temp 97.8 97.8 Pulse 55 56 50 52 Resp 24 20 15 B/P (MAP) 156/91 (112) Pulse Ox 96 96 97 96 O2 Delivery Room Air 02/03/18 02/03/18 02/03/18 02/03/18 16:47 17:00 18:30 19:00 Temp 97.9 97.9 Pulse 51 48 53 Resp 20 14 18 B/P (MAP) 128/77 (94) Pulse Ox 97 96 95 O2 Delivery Room Air Room Air 02/03/18 02/03/18 02/04/18 02/04/18 19:10 22:50 02:51 07:00 Temp 97.7 98.1 97.5 97.7 98.1 97.5 Pulse 53 54 52 Resp 18 18 18 B/P (MAP) 119/65 (83) 126/66 (86) 138/81 (100) Pulse Ox 96 95 99 O2 Delivery Room Air Room Air Room Air Room Air 02/04/18 02/04/18 08:00 08:18 Pulse 52 B/P (MAP) 138/81 O2 Delivery Room Air Intake and Output 02/03/18 02/03/18 02/04/18 15:00 23:00 07:00 Intake Total 1720 ml Balance 1720 ml ERWIN BUTTS III DO Feb 04, 2018 12:14
--- NOTE | 2018-02-04 14:26 | RAD ---
EXAM: Brain MRI without contrast. HISTORY: Dizziness. TECHNIQUE: Multiplanar, multisequence magnetic resonance imaging of the brain was performed without contrast. COMPARISON: Head CT dated 02/03/2018. FINDINGS: There is no restricted diffusion to suggest acute or subacute infarction. There is no mass effect or midline shift. There is no hydrocephalus. There is no susceptibility effect to suggest hemorrhage. There are few tiny foci of signal change within the cerebral white matter, a nonspecific finding. There is mild cerebral volume loss, greater than expected for patient age. There is evidence of lens surgery. There are tiny maxillary sinus mucous retention cysts. There is a small amount of fluid within the right mastoid air cells. There are normal flow voids within the cerebral vessels. There is mildly expanded empty or partially empty sella. IMPRESSION: 1. No acute intracranial finding. 2. Tiny foci of signal change within the cerebral white matter, a nonspecific finding. The imaging appearance favors changes due to chronic small vessel disease or chronic migraine headaches. 3. Mild cerebral volume loss, greater than expected for patient age. 4. Expanded empty or partially empty sella. Electronically signed by: Barbara Francois MD (02/04/2018 2:23 PM) [id number]
[2018-02-04 15:00] VITALS: BP 128/79
--- NOTE | 2018-02-04 17:31 | PDOC2 ---
NEUROLOGY CONSULT Date of Admission Date of Admission DATE: 02/04/18 TIME: 17:15 Reason for Consult Reason for Consult: IMPRESSION: Dizziness x 2 days. Chronic headaches. Pseudotumor cerebri? Empty or partial empty sella on MRI. Confusion. HTN. Dementia. Obesity. No evidence of acute CVA this time. RECOMMENDATIONS/PLAN: Brain MRI w/wo contrast, performed. Lab: see orders. Continue ASA daily. Continue Lipitor HS. Meclizine 25 mg tid. LP to measure CSF opening pressure. Treat medical diseases. Discussed with her at bedside. EEG on 02/04: The posterior dominant rhythm of 7-8 Hz/s is slow for age. HISTORY OF THE PRESENT ILLNESS: 57-y-old female patient with above medical disease developed symptoms of persistent dizziness for about 2 days. She stated she also had room and self spinning sense. No vomiting. She has Hx of chronic headaches almost on a daily basis in entire head. She had dementia evaluation in and was diagnosed as having dementia. Past Medical History Dementia, Hypertension, Migraines, KNEE PROBLEMS,ALZHEIMER'S Hysterectomy, BILAT cataract removed 11/17, Rt arm PAST SURGERY HISTORY: Hysterectomy, BILAT cataract removed 11/17, Rt arm Family History High Cholestrol, HTN. Social History Smoke: No ALCOHOL: none ALLERGY: NKDA Unknown MEDICATIONS: Refer to [facility] SOCIAL HISTORY: Lives with her at home. Denies smoking and illicit drug use. She drinks OZ alcohol occasionally. REVIEW OF SYSTEMS: Constitutional: Obesity. Head: No traumatic brain or head injury. Skin: No edema, or rash. Ear: No infection. Eyes: No vision loss or color blindness. Nose: No bleeding or purulent discharges. Hearing: No hearing decrease. Neck: No injury. Breast: No history of cancer, masses,or discharges. Cardiac: HTN, HLD. Pulmonary: No COPD. GI: No GI ulcer, GI bleeding. Urinary/genital: UTI. Endocrinologic: Obesity. Skeletomuscular: No muscular atrophy. Neurological: see HP. Psychiatric: Denies drug use/abuse. Otherwise, not [id number] review of systems. PHYSICAL EXAMINATION: General appearance is in subacute distress. HEENT: Normocephalic and nontraumatic. Eyes, nose, ears, and throat are unremarkable. Neck is supple. No lymphadenopathy. No bruits are heard over the carotid artery. No crepitus. Cardiovascular: S1, S2, regular rate and rhythm. Pulmonary: Clear to auscultation bilaterally. Abdomen: Bowel sounds are positive. Abdomen is soft, nontender, and nondistended. Extremities: No rash, lesions, or edema. No restriction of range of motion NEUROLOGICAL EXAMINATION: Awake. Oriented partially to time, place and person. PERRL. EOMI. CN: no focal findings. Muscle tone: within normal. Muscle strength: 5- DTR: 2 Plantar reflex: Flexor response bilaterally Gait: not examined in bed. At baseline normal. Sensory exam: no abnormal findings. No cerebellar signs elicited. F-T-N test accurate. Current Medications Current Medications Current Medications Sodium Chloride 1,000 ml @ 1,000 mls/hr 1X ONCE IV Last administered on at 15:37; Start 02/03/18 at 15:00; Stop 02/03/18 at 15:59; Status DC Meclizine HCl (Antivert) 25 mg 1X ONCE PO Last administered on 02/03/18at 15:37 ; Start 02/03/18 at 15:15; Stop 02/03/18 at 15:16; Status DC Ondansetron HCl (Zofran) 4 mg 1X ONCE IV Last administered on 02/03/18at 15:37 ; Start 02/03/18 at 15:15; Stop 02/03/18 at 15:16; Status DC Ondansetron HCl (Zofran) 4 mg PRN Q8HRS PRN IV NAUSEA/VOMITING; Start 02/03/18 at 16:30; Stop 02/04/18 at 16:29; Status DC Acetaminophen (Tylenol) 650 mg PRN Q4HRS PRN PO FEVER Last administered on 02/04at 15:11; Start 02/03/18 at 16:30; Stop 02/04/18 at 16:29; Status DC Sodium Chloride 1,000 ml @ 125 mls/hr 1X ONCE IV Last administered on at 18:30; Start 02/03/18 at 16:30; Stop 02/04/18 at 00:29; Status DC Meclizine HCl (Antivert) 25 mg PRN BID PRN PO DIZZINESS; Start 02/03/18 at 16: 30 Atenolol (Tenormin) 50 mg DAILY PO Last administered on 02/04/18at 08:18; Start 02/04/18 at 09:00 Ondansetron HCl (Zofran Odt) 4 mg PRN TID PRN PO NAUSEA; Start 02/03/18 at 21: 00 Sertraline HCl (Zoloft) 100 mg DAILY PO Last administered on 02/04/18at 08:18; Start 02/04/18 at 09:00 Donepezil HCl (Aricept) 10 mg DAILY PO Last administered on 02/04/18at 08:17; Start 02/04/18 at 09:00 Enoxaparin Sodium (Lovenox 40mg Syringe) 40 mg Q24H SQ Last administered on at 21:11; Start 02/03/18 at 21:00 Aspirin (Ecotrin) 325 mg DAILYWBKFT PO Last administered on 02/04/18at 08:17; Start 02/04/18 at 08:00 Atorvastatin Calcium (Lipitor) 20 mg QHS PO ; Start 02/04/18 at 21:00 Active Scripts Active Reported Zoloft (Sertraline Hcl) 50 Mg Tablet 2 Tab PO DAILY Zofran Odt (Ondansetron) 4 Mg Tab.rapdis 1 Tab SL PRN TID PRN Atenolol 50 Mg Tablet 1 Tab PO DAILY Aricept (Donepezil Hcl) 10 Mg Tablet 1 Tab PO DAILY Allergies Allergies: Allergies Coded Allergies Type Severity Reaction Last Updated Verified No Known Drug Allergies 11/20/14 No ROS Review of System The patient denies any associated fevers, chills, headache, ear pain, rhinorrhea , sore throat, stiff neck, productive cough, chest pain, shortness of breath, back or flank pain, abdominal pain, nausea, vomiting, diarrhea, constipation, dysuria, rash, numbness, weakness, tingling, incontinence, difficulty ambulating, or diaphoresis. Physical Exam Physical Exam General: Well developed, well nourished, no acute distress, well appearing HEENT: Pupils equally round and reactive to light, EOMI, no discharge, normal conjunctiva Neck: Supple, no nuchal rigidity, no JVD, trachea midline, no tenderness Cardiac: RRR, no murmurs, no gallops, no rubs Chest/Lungs: CTAB, no wheeze, no rhonchi, no crackles Abdomen: soft, non-distended, no guarding, no peritoneal signs, non-tender Back: No tenderness Extremities: no edema, pulses intact, non-tender,capillary refill <3 sec bilateral upper and lower extremities, Neuro: Alert and oriented x 4, no focal deficits, normal speech Vitals Vitals: Vital Signs Date Time Temp Pulse Resp B/P (MAP) Pulse Ox O2 Delivery O2 Flow Rate FiO2 02/04/18 08:18 52 138/81 02/04/18 08:00 Room Air 02/04/18 07:00 97.5 18 99 97.5 Labs Labs Laboratory Tests Test 02/03/18 14:40 02/03/18 15:13 02/04/18 08:09 White Blood Count 11.1 x10^3/uL (4.0-11.0) 7.5 x10^3/uL (4.0-11.0) Red Blood Count 4.61 x10^6/uL (3.50-5.40) 4.51 x10^6/uL (3.50-5.40) Hemoglobin 14.2 g/dL (12.0-15.5) 14.3 g/dL (12.0-15.5) Hematocrit 41.6 % (36.0-47.0) 41.1 % (36.0-47.0) Mean Corpuscular Volume 90 fL (79-100) 91 fL (79-100) Mean Corpuscular Hemoglobin 31 pg (25-35) 32 pg (25-35) Mean Corpuscular Hemoglobin Concent 34 g/dL (31-37) 35 g/dL (31-37) Red Cell Distribution Width 13.9 % (11.5-14.5) 13.7 % (11.5-14.5) Platelet Count 261 x10^3/uL (140-400) 228 x10^3/uL (140-400) Neutrophils (%) (Auto) 79 % (31-73) 71 % (31-73) Lymphocytes (%) (Auto) 13 % (24-48) 21 % (24-48) Monocytes (%) (Auto) 7 % (0-9) 5 % (0-9) Eosinophils (%) (Auto) 1 % (0-3) 2 % (0-3) Basophils (%) (Auto) 0 % (0-3) 1 % (0-3) Neutrophils # (Auto) 8.8 x10^3uL (1.8-7.7) 5.3 x10^3uL (1.8-7.7) Lymphocytes # (Auto) 1.5 x10^3/uL (1.0-4.8) 1.6 x10^3/uL (1.0-4.8) Monocytes # (Auto) 0.8 x10^3/uL (0.0-1.1) 0.4 x10^3/uL (0.0-1.1) Eosinophils # (Auto) 0.1 x10^3/uL (0.0-0.7) 0.2 x10^3/uL (0.0-0.7) Basophils # (Auto) 0.0 x10^3/uL (0.0-0.2) 0.1 x10^3/uL (0.0-0.2) Sodium Level 136 mmol/L (136-145) 141 mmol/L (136-145) Potassium Level 3.9 mmol/L (3.5-5.1) 3.7 mmol/L (3.5-5.1) Chloride Level 104 mmol/L (98-107) 106 mmol/L (98-107) Carbon Dioxide Level 23 mmol/L (21-32) 25 mmol/L (21-32) Anion Gap 9 (6-14) 10 (6-14) Blood Urea Nitrogen 8 mg/dL (7-20) 8 mg/dL (7-20) Creatinine 1.0 mg/dL (0.6-1.0) 1.0 mg/dL (0.6-1.0) Estimated GFR (Cockcroft-Gault) 57.4 57.4 BUN/Creatinine Ratio 8 (6-20) Glucose Level 109 mg/dL (70-99) 117 mg/dL (70-99) Calcium Level 9.3 mg/dL (8.5-10.1) 8.3 mg/dL (8.5-10.1) Magnesium Level 2.2 mg/dL (1.8-2.4) Total Bilirubin 0.5 mg/dL (0.2-1.0) Aspartate Amino Transf (AST/SGOT) 14 U/L (15-37) Alanine Aminotransferase (ALT/SGPT) 21 U/L (14-59) Alkaline Phosphatase 108 U/L (46-116) Creatine Kinase 61 U/L (26-192) Creatine Kinase MB (Mass) 0.9 ng/mL (0.0-3.6) Creatine Kinase MB Relative Index % (0-4) Troponin I Quantitative < 0.017 ng/mL (0.000-0.055) [id number] Natriuretic Peptide 176 pg/mL (0-124) Total Protein 7.4 g/dL (6.4-8.2) Albumin 3.8 g/dL (3.4-5.0) Albumin/Globulin Ratio 1.1 (1.0-1.7) Thyroid Stimulating Hormone (TSH) 1.311 uIU/mL (0.358-3.74) Urine Collection Type Unknown Urine Color Yellow Urine Clarity Clear Urine pH 6.5 Urine Specific [place] 1.010 Urine Protein Negative mg/dL (NEG-TRACE) Urine Glucose (UA) Negative mg/dL (NEG) Urine Ketones (Stick) Negative mg/dL (NEG) Urine Blood Negative (NEG) Urine Nitrite Negative (NEG) Urine Bilirubin Negative (NEG) Urine Urobilinogen Dipstick 0.2 mg/dL (0.2 mg/dL) Urine Leukocyte Esterase Small (NEG) Urine RBC Occ /HPF (0-2) Urine WBC Occ /HPF (0-4) Urine Squamous Epithelial Cells Many /LPF Urine Bacteria Few /HPF (0-FEW) Urine Mucus Slight /LPF Urine Opiates Screen Neg (NEG) Urine Methadone Screen Neg (NEG) Urine Barbiturates Neg (NEG) Urine Phencyclidine Screen Neg (NEG) Urine Amphetamine/Methamphetamine Neg (NEG) Urine Benzodiazepines Screen Neg (NEG) Urine Cocaine Screen Neg (NEG) Urine Cannabinoids Screen Neg (NEG) Urine Ethyl Alcohol Neg (NEG) Triglycerides Level 243 mg/dL (0-150) Cholesterol Level 272 mg/dL (0-200) LDL Cholesterol, Calculated 189 mg/dL (0-100) VLDL Cholesterol, Calculated 49 mg/dL (0-40) Non-HDL Cholesterol Calculated 238 mg/dL (0-129) HDL Cholesterol 34 mg/dL (40-60) Cholesterol/HDL Ratio 8.0 Vitamin B12 Level 400 pg/mL (247-911) Laboratory Tests Test 02/04/18 08:09 White Blood Count 7.5 x10^3/uL (4.0-11.0) Red Blood Count 4.51 x10^6/uL (3.50-5.40) Hemoglobin 14.3 g/dL (12.0-15.5) Hematocrit 41.1 % (36.0-47.0) Mean Corpuscular Volume 91 fL (79-100) Mean Corpuscular Hemoglobin 32 pg (25-35) Mean Corpuscular Hemoglobin Concent 35 g/dL (31-37) Red Cell Distribution Width 13.7 % (11.5-14.5) Platelet Count 228 x10^3/uL (140-400) Neutrophils (%) (Auto) 71 % (31-73) Lymphocytes (%) (Auto) 21 % (24-48) Monocytes (%) (Auto) 5 % (0-9) Eosinophils (%) (Auto) 2 % (0-3) Basophils (%) (Auto) 1 % (0-3) Neutrophils # (Auto) 5.3 x10^3uL (1.8-7.7) Lymphocytes # (Auto) 1.6 x10^3/uL (1.0-4.8) Monocytes # (Auto) 0.4 x10^3/uL (0.0-1.1) Eosinophils # (Auto) 0.2 x10^3/uL (0.0-0.7) Basophils # (Auto) 0.1 x10^3/uL (0.0-0.2) Sodium Level 141 mmol/L (136-145) Potassium Level 3.7 mmol/L (3.5-5.1) Chloride Level 106 mmol/L (98-107) Carbon Dioxide Level 25 mmol/L (21-32) Anion Gap 10 (6-14) Blood Urea Nitrogen 8 mg/dL (7-20) Creatinine 1.0 mg/dL (0.6-1.0) Estimated GFR (Cockcroft-Gault) 57.4 Glucose Level 117 mg/dL (70-99) Calcium Level 8.3 mg/dL (8.5-10.1) Triglycerides Level 243 mg/dL (0-150) Cholesterol Level 272 mg/dL (0-200) LDL Cholesterol, Calculated 189 mg/dL (0-100) VLDL Cholesterol, Calculated 49 mg/dL (0-40) Non-HDL Cholesterol Calculated 238 mg/dL (0-129) HDL Cholesterol 34 mg/dL (40-60) Cholesterol/HDL Ratio 8.0 Vitamin B12 Level 400 pg/mL (247-911) ANDRAE RAMIREZ MD Feb 04, 2018 17:31
[2018-02-04 19:00] VITALS: BP 141/77
[2018-02-04] MEDS: ACETAMINOPHEN 325 MG TABLET. PO PRN (20:19)
[2018-02-04] MEDS: ENOXAPARIN 40 MG/0.4 ML SYRINGE. SQ SCH (20:20)
[2018-02-04] MEDS ORDERED: ATORVASTATIN CALCIUM 20 MG TABLET PO SCH (21:00)
--- NOTE | 2018-02-04 21:59 | EEG ---
DATE OF SERVICE: 02/04/2018 ELECTROENCEPHALOGRAM NUMBER: [id number]. OBJECTIVE: This is a 57-year-old female patient with history of presenile dementia and confusional episodes recently. EEG was requested to evaluate cerebral activity. METHODS: Twenty electrodes were applied according to the international 10-20 electrode placement system. EKG monitoring, hyperventilation, intermittent photic stimulation, monopolar and bipolar montages are routinely utilized. The record was obtained on a digital system with video monitoring. FINDINGS: 1. Background: The patient was recorded in the awake and drowsy states. No actual sleep state was recorded. The overall background amplitude is 10-20 microvolts. A posterior dominant rhythm of 6-7 Hz is observed. 2. Abnormalities: No specific epileptiform discharge or electrographic seizure is seen. No focal or diffuse slowing. 3. Activation: Hyperventilation was performed with good efforts and normal response. Intermittent photic stimulation was performed with photic driving. IMPRESSION: This EEG falls into the abnormal category of the study for the awake and drowsy states. No sleep state was recorded. The posterior dominant rhythm of 6-7 Hz is slow for age. No focal, lateralizing, specific epileptiform discharge or electrographic seizure is seen. ANDRAE RAMIREZ MD DR: AARON/aida JOB#: [id number] / [id number] KIYA
[2018-02-04 22:31] LABS: PROTHROMBIN TIME PATIENT 13.9 SEC (11.7-14.0)
[2018-02-04 23:00] VITALS: BP 115/48
[2018-02-05 02:36] VITALS: BP 116/77
[2018-02-05 07:00] VITALS: BP 138/72
[2018-02-05] MEDS: SERTRALINE 50 MG TABLET. PO SCH (08:18)
[2018-02-05] MEDS: ACETAMINOPHEN 325 MG TABLET. PO PRN (08:19)
[2018-02-05] MEDS: ATENOLOL 50 MG TABLET. PO SCH (08:19)
[2018-02-05] MEDS: ASPIRIN ENTERIC COATED 325 MG TABLET.DR. PO SCH (08:19)
[2018-02-05] MEDS: DONEPEZIL HCL 10 MG TABLET. PO SCH (08:19)
[2018-02-05] MEDS ORDERED: LIDOCAINE WITH 8.4% SOD BICARB 3 ML DISP.SYRIN. INJ ONE (09:15)
--- NOTE | 2018-02-05 09:49 | PDOC ---
PROGRESS NOTES Chief Complaint Chief Complaint Pt reports Alzheimer's diagnosis at Concern for TIA or CVA Hypodensity within the cerebral white matter, likely due to chronic small vessel disease. Cerebral volume loss, greater than expected for patient age. Suspected empty or partially empty sella. Hypertension History of Present Illness History of Present Illness Pt seen and examined Dw TENNILLE MASONS present at bedside states she will have lumbar puncture today Vitals Vitals Vital Signs Date Time Temp Pulse Resp B/P (MAP) Pulse Ox O2 Delivery O2 Flow Rate FiO2 02/05/18 08:19 58 116/77 02/05/18 08:00 Room Air 02/05/18 07:00 97.7 18 99 97.7 Physical Exam General: Alert, Cooperative, No acute distress, Other (Not oriented to time) Heart: Regular rate, Normal S1, Normal S2, No murmurs Lungs: Clear Abdomen: Soft, No tenderness Extremities: No clubbing, No cyanosis, No edema Skin: No rashes, No significant lesion Labs LABS Laboratory Tests Test 02/04/18 22:10 Prothrombin Time 13.9 SEC (11.7-14.0) Prothromb Time International Ratio 1.1 (0.8-1.1) Review of Systems Review of Systems CO memory difficulty CO fatigue Assessment and Plan Assessmemt and Plan Problems Medical Problems: (1) Dizziness Status: Acute (2) Nausea Status: Acute R arm numbness HTN emergency POA Left basal ganglia signal intensity, likely subacute infarct SAMIA likely CKD undiagnosed Anemia of chronic disease Dyslipidemia Positive cannabinoids on UDS Plan: Neuro - LP today PT/OT Home meds Possible D/C today if neuro agrees Appreciate neuro input Comment Review of Relevant I have reviewed the following items elijah (where applicable) has been applied. Labs Laboratory Tests Test 02/03/18 14:40 02/03/18 15:13 02/04/18 08:09 02/04/18 22:10 White Blood Count 11.1 x10^3/uL (4.0-11.0) 7.5 x10^3/uL (4.0-11.0) Red Blood Count 4.61 x10^6/uL (3.50-5.40) 4.51 x10^6/uL (3.50-5.40) Hemoglobin 14.2 g/dL (12.0-15.5) 14.3 g/dL (12.0-15.5) Hematocrit 41.6 % (36.0-47.0) 41.1 % (36.0-47.0) Mean Corpuscular Volume 90 fL (79-100) 91 fL (79-100) Mean Corpuscular Hemoglobin 31 pg (25-35) 32 pg (25-35) Mean Corpuscular Hemoglobin Concent 34 g/dL (31-37) 35 g/dL (31-37) Red Cell Distribution Width 13.9 % (11.5-14.5) 13.7 % (11.5-14.5) Platelet Count 261 x10^3/uL (140-400) 228 x10^3/uL (140-400) Neutrophils (%) (Auto) 79 % (31-73) 71 % (31-73) Lymphocytes (%) (Auto) 13 % (24-48) 21 % (24-48) Monocytes (%) (Auto) 7 % (0-9) 5 % (0-9) Eosinophils (%) (Auto) 1 % (0-3) 2 % (0-3) Basophils (%) (Auto) 0 % (0-3) 1 % (0-3) Neutrophils # (Auto) 8.8 x10^3uL (1.8-7.7) 5.3 x10^3uL (1.8-7.7) Lymphocytes # (Auto) 1.5 x10^3/uL (1.0-4.8) 1.6 x10^3/uL (1.0-4.8) Monocytes # (Auto) 0.8 x10^3/uL (0.0-1.1) 0.4 x10^3/uL (0.0-1.1) Eosinophils # (Auto) 0.1 x10^3/uL (0.0-0.7) 0.2 x10^3/uL (0.0-0.7) Basophils # (Auto) 0.0 x10^3/uL (0.0-0.2) 0.1 x10^3/uL (0.0-0.2) Sodium Level 136 mmol/L (136-145) 141 mmol/L (136-145) Potassium Level 3.9 mmol/L (3.5-5.1) 3.7 mmol/L (3.5-5.1) Chloride Level 104 mmol/L (98-107) 106 mmol/L (98-107) Carbon Dioxide Level 23 mmol/L (21-32) 25 mmol/L (21-32) Anion Gap 9 (6-14) 10 (6-14) Blood Urea Nitrogen 8 mg/dL (7-20) 8 mg/dL (7-20) Creatinine 1.0 mg/dL (0.6-1.0) 1.0 mg/dL (0.6-1.0) Estimated GFR (Cockcroft-Gault) 57.4 57.4 BUN/Creatinine Ratio 8 (6-20) Glucose Level 109 mg/dL (70-99) 117 mg/dL (70-99) Calcium Level 9.3 mg/dL (8.5-10.1) 8.3 mg/dL (8.5-10.1) Magnesium Level 2.2 mg/dL (1.8-2.4) Total Bilirubin 0.5 mg/dL (0.2-1.0) Aspartate Amino Transf (AST/SGOT) 14 U/L (15-37) Alanine Aminotransferase (ALT/SGPT) 21 U/L (14-59) Alkaline Phosphatase 108 U/L (46-116) Creatine Kinase 61 U/L (26-192) Creatine Kinase MB (Mass) 0.9 ng/mL (0.0-3.6) Creatine Kinase MB Relative Index % (0-4) Troponin I Quantitative < 0.017 ng/mL (0.000-0.055) ZD-Imm-B-Type Natriuretic Peptide 176 pg/mL (0-124) Total Protein 7.4 g/dL (6.4-8.2) Albumin 3.8 g/dL (3.4-5.0) Albumin/Globulin Ratio 1.1 (1.0-1.7) Thyroid Stimulating Hormone (TSH) 1.311 uIU/mL (0.358-3.74) Urine Collection Type Unknown Urine Color Yellow Urine Clarity Clear Urine pH 6.5 Urine Specific [place] 1.010 Urine Protein Negative mg/dL (NEG-TRACE) Urine Glucose (UA) Negative mg/dL (NEG) Urine Ketones (Stick) Negative mg/dL (NEG) Urine Blood Negative (NEG) Urine Nitrite Negative (NEG) Urine Bilirubin Negative (NEG) Urine Urobilinogen Dipstick 0.2 mg/dL (0.2 mg/dL) Urine Leukocyte Esterase Small (NEG) Urine RBC Occ /HPF (0-2) Urine WBC Occ /HPF (0-4) Urine Squamous Epithelial Cells Many /LPF Urine Bacteria Few /HPF (0-FEW) Urine Mucus Slight /LPF Urine Opiates Screen Neg (NEG) Urine Methadone Screen Neg (NEG) Urine Barbiturates Neg (NEG) Urine Phencyclidine Screen Neg (NEG) Urine Amphetamine/Methamphetamine Neg (NEG) Urine Benzodiazepines Screen Neg (NEG) Urine Cocaine Screen Neg (NEG) Urine Cannabinoids Screen Neg (NEG) Urine Ethyl Alcohol Neg (NEG) Triglycerides Level 243 mg/dL (0-150) Cholesterol Level 272 mg/dL (0-200) LDL Cholesterol, Calculated 189 mg/dL (0-100) VLDL Cholesterol, Calculated 49 mg/dL (0-40) Non-HDL Cholesterol Calculated 238 mg/dL (0-129) HDL Cholesterol 34 mg/dL (40-60) Cholesterol/HDL Ratio 8.0 Vitamin B12 Level 400 pg/mL (247-911) Prothrombin Time 13.9 SEC (11.7-14.0) Prothromb Time International Ratio 1.1 (0.8-1.1) Laboratory Tests Test 02/04/18 22:10 Prothrombin Time 13.9 SEC (11.7-14.0) Prothromb Time International Ratio 1.1 (0.8-1.1) Medications Current Medications Sodium Chloride 1,000 ml @ 1,000 mls/hr 1X ONCE IV Last administered on at 15:37; Start 02/03/18 at 15:00; Stop 02/03/18 at 15:59; Status DC Meclizine HCl (Antivert) 25 mg 1X ONCE PO Last administered on 02/03/18at 15:37 ; Start 02/03/18 at 15:15; Stop 02/03/18 at 15:16; Status DC Ondansetron HCl (Zofran) 4 mg 1X ONCE IV Last administered on 02/03/18at 15:37 ; Start 02/03/18 at 15:15; Stop 02/03/18 at 15:16; Status DC Ondansetron HCl (Zofran) 4 mg PRN Q8HRS PRN IV NAUSEA/VOMITING; Start 02/03/18 at 16:30; Stop 02/04/18 at 16:29; Status DC Acetaminophen (Tylenol) 650 mg PRN Q4HRS PRN PO FEVER Last administered on 02/04at 15:11; Start 02/03/18 at 16:30; Stop 02/04/18 at 16:29; Status DC Sodium Chloride 1,000 ml @ 125 mls/hr 1X ONCE IV Last administered on at 18:30; Start 02/03/18 at 16:30; Stop 02/04/18 at 00:29; Status DC Meclizine HCl (Antivert) 25 mg PRN BID PRN PO DIZZINESS; Start 02/03/18 at 16: 30 Atenolol (Tenormin) 50 mg DAILY PO Last administered on 02/05/18 08:19; Start 02/04/18 at 09:00 Ondansetron HCl (Zofran Odt) 4 mg PRN TID PRN PO NAUSEA; Start 02/03/18 at 21: 00 Sertraline HCl (Zoloft) 100 mg DAILY PO Last administered on 02/05/18 08:18; Start 02/04/18 at 09:00 Donepezil HCl (Aricept) 10 mg DAILY PO Last administered on 02/05/18 08:19; Start 02/04/18 at 09:00 Enoxaparin Sodium (Lovenox 40mg Syringe) 40 mg Q24H SQ Last administered on at 20:20; Start 02/03/18 at 21:00 Aspirin (Ecotrin) 325 mg DAILYWBKFT PO Last administered on 02/05/18 08:19; Start 02/04/18 at 08:00 Atorvastatin Calcium (Lipitor) 20 mg QHS PO Last administered on 02/04/18 20: 19; Start 02/04/18 at 21:00 Acetaminophen (Tylenol) 650 mg PRN Q6HRS PRN PO HEADACHE Last administered on 08:19; Start 02/04/18 at 20:15 Lidocaine/Sodium Bicarbonate (Buffered Lidocaine 1%) 6 ml 1X ONCE INJ ; Start 02/05/18 at 09:15; Stop 8/30/18 at 09:16; Status DC Active Scripts Active Reported Zoloft (Sertraline Hcl) 50 Mg Tablet 2 Tab PO DAILY Zofran Odt (Ondansetron) 4 Mg Tab.rapdis 1 Tab SL PRN TID PRN Atenolol 50 Mg Tablet 1 Tab PO DAILY Aricept (Donepezil Hcl) 10 Mg Tablet 1 Tab PO DAILY Vitals/I & O Vital Sign - Last 24 Hours 02/04/18 02/04/18 02/04/18 02/04/18 15:00 19:00 20:00 23:00 Temp 98.1 97.7 97.7 98.1 97.7 97.7 Pulse 53 48 51 Resp 18 18 18 B/P (MAP) 128/79 (95) 141/77 (98) 115/48 (70) Pulse Ox 92 97 97 O2 Delivery Room Air Room Air Room Air Room Air 02/05/18 02/05/18 02/05/18 02/05/18 02:36 07:00 08:00 08:19 Temp 97.9 97.7 97.9 97.7 Pulse 58 64 58 Resp 16 18 B/P (MAP) 116/77 (90) 138/72 (94) 116/77 Pulse Ox 100 99 O2 Delivery Room Air Room Air Room Air Intake and Output 02/04/18 02/04/18 02/05/18 15:00 23:00 07:00 Intake Total 360 ml 180 ml Balance 360 ml 180 ml ERWIN BUTTS III DO Feb 05, 2018 09:49
[2018-02-05 11:00] VITALS: BP 149/80
--- NOTE | 2018-02-05 14:06 | PDOC ---
Provider Note Provider Note The fluoro guided LP was performed utilizing a 20 g needle with 9 cc of clear CSF removed and sent to the lab for appropriate studies. The opening pressure was 12 cm and the closing pressure was 10 cm. The patient tolerated the procedure well and was returned to the floor in good condition. SHANE URIBE MD Feb 05, 2018 14:06
[2018-02-05 14:44] LABS: CSF PROTEIN 33.2 mg/dL (15.0-45.0)
[2018-02-05 14:54] LABS: CSF CLARITY CLEAR; CSF COLOR COLORLESS
[2018-02-05 14:55] LABS: CSF RBC COUNT 224; CSF WBC COUNT 1
[2018-02-05 15:00] VITALS: BP 117/57
--- NOTE | 2018-02-05 16:32 | RAD ---
Fluoroscopically guided lumbar puncture, 02/05/2018: History: Headaches, possible pseudotumor cerebri Under local anesthesia, aseptic conditions and fluoroscopic guidance a lumbar puncture was performed at the L2-3 level utilizing a 20-gauge spinal needle. The opening pressure was 12 cm water. Approximately 9 cc of clear CSF was removed and sent to the lab for appropriate studies. Closing pressure was 10 cm of water. The spinal needle was then removed and hemostasis obtained. 1.6 minutes of fluoroscopy time was utilized. 2 fluoroscopic spot images were recorded. The patient tolerated the procedure well and was returned to the floor in good condition.
--- NOTE | 2018-02-05 18:20 | PDOC ---
PROGRESS NOTES Assessment Assessment Dizziness x 2 days. Chronic migraine headaches. Empty or partial empty sella on MRI. Confusion. HTN. Dementia. Obesity. No evidence of acute CVA this time. No evidence of pseudotumor cerebri at the present time. RECOMMENDATIONS/PLAN: Continue ASA daily. Continue Lipitor HS. Meclizine 25 mg tid. Topamax 25 mg bid. Treat medical diseases. FU with PCP. FU with Neurology if has persistent headaches. Discussed with her at bedside again on 02/05/18. EEG on 02/04: The posterior dominant rhythm of 7-8 Hz/s is slow for age. LP on 02/05: CSF opening pressure is 12 cmH20. HISTORY OF THE PRESENT ILLNESS: 57-y-old female patient with above medical disease developed symptoms of persistent dizziness for about 2 days. She stated she also had room and self spinning sense. No vomiting. She has Hx of chronic headaches almost on a daily basis in entire head. She had dementia evaluation in and was diagnosed as having dementia. Past Medical History Dementia, Hypertension, Migraines, KNEE PROBLEMS,ALZHEIMER'S Hysterectomy, BILAT cataract removed 11/17, Rt arm PAST SURGERY HISTORY: Hysterectomy, BILAT cataract removed 11/17, Rt arm Family History High Cholestrol, HTN. Social History Smoke: No ALCOHOL: none ALLERGY: NKDA Unknown MEDICATIONS: Refer to [facility] SOCIAL HISTORY: Lives with her at home. Denies smoking and illicit drug use. She drinks OZ alcohol occasionally. REVIEW OF SYSTEMS: Constitutional: Obesity. Head: No traumatic brain or head injury. Skin: No edema, or rash. Ear: No infection. Eyes: No vision loss or color blindness. Nose: No bleeding or purulent discharges. Hearing: No hearing decrease. Neck: No injury. Breast: No history of cancer, masses,or discharges. Cardiac: HTN, HLD. Pulmonary: No COPD. GI: No GI ulcer, GI bleeding. Urinary/genital: UTI. Endocrinologic: Obesity. Skeletomuscular: No muscular atrophy. Neurological: see HP. Psychiatric: Denies drug use/abuse. Otherwise, not [id number] review of systems. PHYSICAL EXAMINATION: General appearance is in subacute distress. HEENT: Normocephalic and nontraumatic. Eyes, nose, ears, and throat are unremarkable. Neck is supple. No lymphadenopathy. No bruits are heard over the carotid artery. No crepitus. Cardiovascular: S1, S2, regular rate and rhythm. Pulmonary: Clear to auscultation bilaterally. Abdomen: Bowel sounds are positive. Abdomen is soft, nontender, and nondistended. Extremities: No rash, lesions, or edema. No restriction of range of motion NEUROLOGICAL EXAMINATION: Awake. Oriented partially to time, place and person. PERRL. EOMI. CN: no focal findings. Muscle tone: within normal. Muscle strength: 5- DTR: 2 Plantar reflex: Flexor response bilaterally Gait: At baseline normal. Sensory exam: no abnormal findings. No cerebellar signs elicited. F-T-N test accurate. Objective Objective Vital Signs Date Time Temp Pulse Resp B/P (MAP) Pulse Ox O2 Delivery O2 Flow Rate FiO2 02/05/18 15:00 97.9 51 16 117/57 (77) 98 Room Air 97.9 Intake and Output 02/05/18 07:00 Intake Total 540 ml Balance 540 ml Intake Oral 540 ml # Voids 5 Vitals Signs Vitals VS - Last 72 Hours, by Label Date Time Temp Pulse Resp B/P (MAP) Pulse Ox O2 Delivery O2 Flow Rate FiO2 02/05/18 15:00 97.9 51 16 117/57 (77) 98 Room Air 97.9 02/05/18 11:00 97.9 54 16 149/80 (103) 97 Room Air 97.9 02/05/18 08:19 58 116/77 02/05/18 08:00 Room Air 02/05/18 07:00 97.7 64 18 138/72 (94) 99 Room Air 97.7 02/05/18 02:36 97.9 58 16 116/77 (90) 100 Room Air 97.9 02/04/18 23:00 97.7 51 18 115/48 (70) 97 Room Air 97.7 02/04/18 20:00 Room Air 02/04/18 19:00 97.7 48 18 141/77 (98) 97 Room Air 97.7 02/04/18 15:00 98.1 53 18 128/79 (95) 92 Room Air 98.1 02/04/18 08:18 52 138/81 02/04/18 08:00 Room Air 02/04/18 07:00 97.5 52 18 138/81 (100) 99 Room Air 97.5 Laboratory Laboratory Laboratory Tests Test 02/04/18 22:10 02/05/18 13:53 Prothrombin Time 13.9 SEC (11.7-14.0) Prothromb Time International Ratio 1.1 (0.8-1.1) CSF Color Colorless CSF Clarity Clear CSF WBC 1 CSF RBC 224 CSF Glucose 52 mg/dL (37-70) CSF Total Protein 33.2 mg/dL (15.0-45.0) Microbiology 02/05/18 CSF Gram Stain - Final, Complete Medication Medications Current Medications Acetaminophen (Tylenol) 650 mg PRN Q6HRS PRN PO HEADACHE Last administered on at 08:19; Start 02/04/18 at 20:15; Stop 02/05/18 at 18:08; Status DC Atorvastatin Calcium (Lipitor) 20 mg QHS PO Last administered on 02/04/18at 20: 19; Start 02/04/18 at 21:00; Stop 02/05/18 at 18:08; Status DC Lidocaine/Sodium Bicarbonate (Buffered Lidocaine 1%) 6 ml 1X ONCE INJ Last administered on 02/05/18at 13:30; Start 02/05/18 at 09:15; Stop 02/05/18 at 09:16 ; Status DC Comment Review of Relevant I have reviewed the following items elijah (where applicable) has been applied. ANDRAE RAMIREZ MD Feb 05, 2018 18:20
[2018-02-07 21:12] LABS: HERPES SIMPLEX TYPE 1 Negative (Negative); HERPES SIMPLEX TYPE 2 Negative (Negative)
== END 2018-02-05 18:07 | disposition home or self-care (01) | DRG 682 ==
LOC: ER 14:11 → 5 NORTH 16:03
PROVIDERS: ADMIT Family Medicine; ATTEND Family Medicine
PROC: 009U3ZZ Drainage of Spinal Canal, Percutaneous Approach (ICD-10-PCS; principal; 2018-02-05)
PROC: B01B1ZZ Fluoroscopy of Spinal Cord using Low Osmolar Contrast (ICD-10-PCS; 2018-02-05)
DX: N17.9 Acute kidney failure, unspecified (principal); G93.41 Metabolic encephalopathy; I16.1 Hypertensive emergency; H83.09 Labyrinthitis, unspecified ear; I10 Essential (primary) hypertension; G43.909 Migraine, unspecified, not intractable, without status migrainosus; F02.80 Dementia in other diseases classified elsewhere, unspecified severity, without behavioral disturbance, psychotic disturbance, mood disturbance, and anxiety; Z90.710 Acquired absence of both cervix and uterus; G30.9 Alzheimer's disease, unspecified; H26.9 Unspecified cataract; E66.9 Obesity, unspecified; Z82.49 Family history of ischemic heart disease and other diseases of the circulatory system; D63.8 Anemia in other chronic diseases classified elsewhere; E78.5 Hyperlipidemia, unspecified; Z79.82 Long term (current) use of aspirin
CPT/HCPCS: 36415; 62270; 70450; 70551; 71045; 80048; 80053; 80061; 80307; 81001; 82553; 82607; 82945; 83735; 83880; 84157; 84443; 84484; 85025; 85610; 87071; 87075; 87086; 87529; 89051; 93005; 93880; 95816; 96361; 96374; J1650; J2405; J7030; J8597; 99285-25; G0479